=== PATIENT | male | born 1955 | race Caucasian/White ===

== ENCOUNTER → 2017-12-21 | Outpatient (CLI) | payer OTHER ==
--- NOTE | 2017-12-23 11:51 | MR ---
MRI CERVICAL SPINE: CLINICAL HISTORY: Cervicalgia per order. Neck pain for 40 years causing pain or weakness into both ar ms and fingers per patient. TECHNIQUE: Multiplanar, multisequence imaging of the cervical spine is performed without IV contrast. COMPARISON: MRI cervical spine June 03, 2010. FINDINGS: Coronal images redemonstrate stable levoconvex scoliotic curvature centered in the upper th oracic spine. Sagittal images of the cervical spine show the craniocervical junction to remain within normal limits. The cervical and upper thoracic spinal cord is normal in caliber and signal. There i s stable grade 1 retrolisthesis of C5 on C6. There is stable fairly moderate disc space narrowing C5 -C6 level. Posterior disc herniations effacing anterior thecal sac C5-C6 through C7-T1 level on curre nt study. The vertebral body and intravertebral disk heights otherwise are felt within normal limits. Some heterogeneity of bone marrow signal intensity is appreciated. Axial images show the C2-C3 level to remain within normal limits. Axial images at C3-C4 level show right-sided uncovertebral facet degenerative change causing mild rig ht-sided neural foraminal narrowing new from prior study. Axial images at C4-C5 level are felt to appear within normal limits on current study, there is interv al improvement or resolution of left paracentral disc protrusion. Axial images at C5-C6 level redemonstrated broad-based posterior disc protrusion effacing anterior th ecal sac nearly up to ventral surface of spinal cord and causing moderate to severe left-sided neural foraminal narrowing similar to prior. There is mild right-sided neural foraminal narrowing redemonst rated. Axial images at C6-C7 level show right paracentral/foraminal disc protrusion effacing anterolateral t hecal sac with moderate right and mild left-sided neural foraminal narrowing redemonstrated. No signi ficant change from prior. Axial images at C7-T1 level show left paracentral disc protrusion effacing anterior thecal sac on axi al image 5, bilateral neural foramina are patent. No significant change from prior. There is partial visualization of fairly well-defined oval-shaped solid and cystic lesion in the deep inferior left parotid gland axial image 44 for reference measuring 2.0 x 1.3 cm that warrants furthe r workup. IMPRESSION: 1. Multilevel degenerative changes in cervical spine most prominent C5-C6 level without significant i nterval progression. Interval improvement in findings noted C4-C5 level. Some new or progressive find ings are seen as detailed above. 2. Suspicious solid and cystic area deep inferior left parotid gland, neoplasm cannot be excluded. Ad vise ENT referral. Consider contrast-enhanced neck CT to further evaluate.
== END ==
LOC: RADMRIMAIN 16:39
PROVIDERS: ATTEND Psychiatry & Neurology Neurology
DX: M50.322 Other cervical disc degeneration at C5-C6 level (principal); K11.6 Mucocele of salivary gland
CPT/HCPCS: 72141